=== PATIENT | male | born 1950 ===

== ENCOUNTER 2022-04-24 09:08 | Outpatient (CLI) | payer MEDICARE, BC ==
[~2022-04-24 09:08] MED LIST: Iopamidol 300 61% 100 ML VIAL FS ONE
== END 2022-04-24 09:09 | disposition home or self-care (01) ==
LOC: CSHCT 09:08
PROVIDERS: ATTEND Urology
DX: C61 Malignant neoplasm of prostate (principal); N50.812 Left testicular pain; K40.20 Bilateral inguinal hernia, without obstruction or gangrene, not specified as recurrent; R59.0 Localized enlarged lymph nodes; R93.7 Abnormal findings on diagnostic imaging of other parts of musculoskeletal system
CPT/HCPCS: 72194; 82565; Q9967